=== PATIENT | female | born 1990 | race Caucasian/White ===

== ENCOUNTER 2016-05-01 16:11 | Emergency (ER) | payer OTHER ==
[2016-05-01 16:28] VITALS: TEMP 98
[2016-05-01] MEDS ORDERED: NS 1,000 ML IV ONE ×2 (16:55→17:05)
[2016-05-01] MEDS ORDERED: METOCLOPRAMIDE 10 MG/2 ML VIAL IVP ONE (17:05)
[2016-05-01] MEDS ORDERED: KETOROLAC 30 MG/1 ML SDV IVP ONE (17:05)
[2016-05-01 17:10] LABS: % IMMATURE GRANULYOCYTES 0.5 % (0.0-1.1); ABSOLUTE IMMATURE GRANULOCYTES 0.06 10^3/uL (0.00-0.10); ADD DIFF? NO; ADD MORPH? NO; ADD SCAN? NO; ATYPICAL LYMPHOCYTE FLAG 10 (0-99); FRAGMENT RBC FLAG 0 (0-99); HEMATOCRIT 41.7 % (38.0-47.0); HEMOGLOBIN 14.3 g/dL (12.6-16.3); LEFT SHIFT FLG 0 (0-99); LIPEMIA HEMOLYSIS FLAG 90 (0-99); MEAN CELL HEMOGLOBIN 30.4 pg (27.9-34.1); MEAN CELL HEMOGLOBIN CONCENTR. 34.3 g/dL (32.4-36.7); MEAN CELL VOLUME 88.7 fL (81.5-99.8); MEAN PLATELET VOLUME 9.8 fL (8.7-11.7); PLATELET CLUMPS FLAG 0 (0-99); PLATELET COUNT 288 10^3/uL (150-400); RED CELL DISTRIBUTION WIDTH 12.1 % (11.5-15.2)
[2016-05-01 18:11] VITALS: BP 109/78; PULSE 80; RESP 15; O2SAT 100
--- NOTE | 2016-05-01 18:20 | UCPHY ---
H & P Patient Type: New Chief Complaint Nursing Narrative: c/o N/V/ELIZABETH on and off since Friday - last took motrin 4 hrs ago with out relief Time Seen by Provider: 05/01/16 16:37 HPI/ROS: This patient reports severe headache that she awakened with this morning that is left more than right sharp and squeezing in nature 8/10 intensity associated with vomiting 5 times today. She has associated photophobia mild hyperacusis. On occasion she has had similar headaches that usually resolved with over-the- counter medications but the prominent nausea and vomiting with this episode this prevented her from keeping down any medications at home. She reports an antecedent history of URI symptoms for 1 week consisting of coryza and occasional cough. She had diaphoresis fever and chills the 1st 3 days of that illness and all of the symptoms of now resolved except her rare cough. No fevers over the past few days. ROS: HEENT: No facial pressure pain. No sinus congestion currently. No sore throat. Neuro: No confusion. No numbness tingling or focal weakness. No vision changes. Pulmonary: No pleuritic pain. No shortness of breath. No wheezing. Cardiovascular: No lightheadedness. GI: No abdominal pain. : Patient has Mirena ring so has a typical menses which is baseline for her. She does not feel she is . 10 point ROS is otherwise negative. Source: Patient, Family Exam Limitations: No limitations - Personal History LMP (Females 10-55): Extended Cycle BCP/Inj Current Tetanus Diphtheria and Acellular Pertussis (TDAP): Yes - Medical/Surgical History PMH: Family history: Mother and her aunt both have migraine headaches Other PMH: Migrane - Family History Significant Family History: No pertinent family hx - Social History Smoking Status: Never smoked Alcohol Use: Occasionally Drug Use: None - Physical Exam Exam: Physical exam: General: No acute distress Eyes: Pupils are equal and reactive to light. Extraocular motions are intact. Optic fundi: Clear with no papilledema or hemorrhage. Nose atraumatic. Ears : HEENT: No cranial tenderness to palpation. No sinus tenderness to percussion. Nose: Clear. Ears: Clear bilaterally with no hemotympanum. Oropharynx: No dental trauma or malocclusion. No intraoral lacerations. Neck: Supple with no meningismus. Lungs: Clear to auscultation bilaterally. No rales, rhonchi or wheeze. Cardiac: Regular rate and rhythm no murmur gallop or rub. Abdomen: Soft nontender no organomegaly Back: Nontender Extremities: Atraumatic Neuro: GCS of 15. Cranial nerves II through XII intact. Cerebellar exam is normal as judged by symmetric rapid hand movements bilaterally. No pronator drift. No sensory or motor deficits are appreciated. Differential diagnosis: Migraine headache, doubt viral APARTMENT COORDINATOR infection or other no APARTMENT COORDINATOR infection, recent URI, doubt bronchitis or pneumonia Constitutional: Initial Vital Signs Temperature (C) 36.6 C 05/01/16 16:24 Heart Rate 83 05/01/16 16:24 Respiratory Rate 18 05/01/16 16:24 Blood Pressure 115/62 05/01/16 16:24 O2 Sat (%) 99 05/01/16 16:24 O2 Delivery Mode Room Air Allergies/Adverse Reactions: No Known Allergies Allergy (Unverified 11/21/09 12:11) Home Medications: Medication Instructions Recorded Control Pills 11/21/09 Ondansetron Odt [Zofran Odt] 4 - 8 mg PO Q4PRN PRN #4 tab 05/01/16 SUMAtriptan [Imitrex 50 MG (RX)] 50 - 100 mg PO Q2H PRN #6 tab 05/01/16 Medical Decision Making ED Course/Re-evaluation: IV normal saline bolus, Reglan Benadryl Toradol with marked improvement in her headache down to 3 or 04 of 2009. Her nausea also resolved and she tolerated p.o. intake. She felt significant improvement with treatment. Labs: Mild leukocytosis Discussion: Findings are most consistent with viral URI followed by migraine headache. I counseled regarding this - Data Points Laboratory Results: Laboratory Results 05/01/16 16:50 05/01/16 16:50 WBC 12.40 10^3/uL H 10^3/uL (3.80-9.50) RBC 4.70 10^6/uL 10^6/uL (4.18-5.33) Hgb 14.3 g/dL g/dL (12.6-16.3) Hct 41.7 % % (38.0-47.0) MCV 88.7 fL fL (81.5-99.8) MCH 30.4 pg pg (27.9-34.1) MCHC 34.3 g/dL g/dL (32.4-36.7) RDW 12.1 % % (11.5-15.2) Plt Count 288 10^3/uL 10^3/uL (150-400) MPV 9.8 fL fL (8.7-11.7) Neut % (Auto) 83.2 % H % (39.3-74.2) Lymph % (Auto) 12.5 % L % (15.0-45.0) Powell % (Auto) 3.0 % L % (4.5-13.0) Eos % (Auto) 0.3 % L % (0.6-7.6) Baso % (Auto) 0.5 % % (0.3-1.7) Nucleat RBC Rel Count 0.0 % % (0.0-0.2) Absolute Neuts (auto) 10.32 10^3/uL H 10^3/uL (1.70-6.50) Absolute Lymphs (auto) 1.55 10^3/uL 10^3/uL (1.00-3.00) Absolute Monos (auto) 0.37 10^3/uL 10^3/uL (0.30-0.80) Absolute Eos (auto) 0.04 10^3/uL 10^3/uL (0.03-0.40) Absolute Basos (auto) 0.06 10^3/uL 10^3/uL (0.02-0.10) Absolute Nucleated RBC 0.00 10^3/uL 10^3/uL (0-0.01) Immature Gran % 0.5 % % (0.0-1.1) Immature Gran # 0.06 10^3/uL 10^3/uL (0.00-0.10) Medications Given: Discontinued Medications Diphenhydramine HCl (Benadryl Injection) 25 mg IVP EDNOW ONE Stop: 05/01/16 17:06 Last Admin: 05/01/16 17:15 Dose: 25 mg Sodium Chloride (Ns) 1,000 mls @ 0 mls/hr IV ONCE ONE PRN Reason: Wide Open Stop: 05/01/16 17:06 Last Admin: 05/01/16 17:20 Dose: 1,000 mls Sodium Chloride (Ns) 1,000 mls @ 0 mls/hr IV ONCE ONE PRN Reason: Wide Open Stop: 05/01/16 16:56 Last Admin: 05/01/16 16:55 Dose: 1,000 mls Ketorolac Tromethamine (Toradol) 30 mg IVP EDNOW ONE Stop: 05/01/16 17:06 Last Admin: 05/01/16 17:15 Dose: 30 mg Metoclopramide HCl (Reglan Injection) 5 mg IVP EDNOW ONE Stop: 05/01/16 17:06 Last Admin: 05/01/16 17:15 Dose: 5 mg Departure - Departure Disposition: Home, Routine, Self-Care Clinical Impression: Viral URI with cough Migraine headache without aura Qualifiers: Status migrainosus presence: without status migrainosus Intractability: not intractable Qualified Code(s): G43.009 - Migraine without aura, not intractable , without status migrainosus Vomiting Qualifiers: Vomiting type: unspecified Vomiting Intractability: non-intractable Nausea presence: with nausea Qualified Code(s): R11.2 - Nausea with vomiting, unspecified Condition: Good Instructions: Migraine Headache (ED), Upper Respiratory Infection (ED) Additional Instructions: Diagnoses: 1. Migraine headache 2. URI with cough 3. Vomiting Plan: Home to rest. Drink plenty fluids Eojerycsa-[id number] mg per 6 hours, and Imitrex if needed for any recurrent headaches Zofran if needed for nausea vomiting. Follow up with the neurologist for any ongoing symptoms. Go to the emergency department for any significant worsening of her symptoms Referrals: NONE *PRIMARY CARE P,. [Primary Care Provider] - As per Instructions Lee Andrews DO [Doctor of Osteopathy] - As per Instructions Prescriptions: Ondansetron Odt [Zofran Odt] 4 - 8 mg PO Q4PRN PRN #4 tab PRN Reason: Vomiting SUMAtriptan [Imitrex 50 MG (RX)] 50 - 100 mg PO Q2H PRN #6 tab PRN Reason: migraine - PQRS PQRS Measurement: NA
== END 2016-05-01 18:32 | disposition home or self-care (01) ==
LOC: CED 16:11
DX: J06.9 Acute upper respiratory infection, unspecified (principal); G43.009 Migraine without aura, not intractable, without status migrainosus; R05 Cough; R11.2 Nausea with vomiting, unspecified
CPT/HCPCS: 85025-PO; 96361-PO; 96374-PO; 96375-PO; 99204-PO; G0463-PO; J1200; J1885; J2765